=== PATIENT | female | born 1965 | race Caucasian/White ===

== ENCOUNTER 2018-11-03 10:24 | Day surgery (SDC) | payer BC ==
[~2018-11-03] VITALS: Ht 149.9 cm; Wt 112.9 kg
[~2018-11-03 10:24] MED LIST: CHOL10002 PO; CYCL10 PO; DULO30 PO; ESTR2 PO; HYDACE10B PO; IBUP600 PO; IBUP800 PO; METO10 PO; NEXIUM PO; Neurontin600 MG PO; Norco 10-325 T1 EACH PO; OXYACE5T PO; RXOXYACE PO; Zanaflex2 M1 PO
--- NOTE | 2018-11-03 11:15 | NUR ---
PT ADMITTED TO [facility]. AGREES WITH PLANNED PROCEDURE. TOLERATED BOWEL PREP STATES LAST BM CLEAR.
--- NOTE | 2018-11-03 12:09 | NUR ---
11/03/18 1209 Jack Rios History, Chart, Medications and Allergies reviewed before start of procedure.MONITOR INTACT WITH CONTINUOUS PULSE OXIMETRY AND INTERMITTENT BP.3-LEAD EKG REVIEWED WITH PHYSICIAN PRIOR TO START OF PROCEDURE.O2 VIA N/C INTACT THROUGHOUT SEDATION/PROCEDURE. Patient confirms NPO status and agrees with scheduled surgery.See Anesthesia record.
--- NOTE | 2018-11-03 14:01 | NUR ---
SPOKE WITH DR ESTRELLA IN REGARDS TO PATIENTS STATUS. PT CONTINUES TO HAVE INCREASE WORK OF BREATHING AND SOB. 02 3L/NC WITH SATS 88-91%. LUNG SOUNDS DEMINISHED T/O. NEW ORDERS PER DR ESTRELLA TO GET CHEST XRAY AND GET PT UP TO AMBULATE IF TOERATED. INCENTIVE SPIROMETER GIVEN, NOT ABLE TO INHALE DEEPLY.
--- NOTE | 2018-11-03 14:06 | NUR ---
LEFT FOR CHEST XRAY VIA GURNEY.
--- NOTE | 2018-11-03 14:29 | NUR ---
RETURNED FROM XRAY. C/O SCIATIC NERVE PAIN. GOT UP TO CHAIR WITH SBA, TOLERATED WELL. CONTINUES TO HAVE TROUBLE BREATHING. AWAIT FOR XRAY RESULT.
--- NOTE | 2018-11-03 14:31 | NUR ---
RADIOLOGIST, DR RIVERA CALLED AND CONFIRMED XRAY THAT LEFT LUNG WITH CHANGES, SHOWING POSSIBLE ASPIRATION. WILL F/U WITH DR ESTRELLA REGARDING RESULTS. PT C/O OF CHEST PAIN WITH PRESSURE AND SHARP TO EXHALE FEELING ALONG WITH SORE THROAT FROM COUGHING.
--- NOTE | 2018-11-03 14:51 | NUR ---
NEW ORDERS PER DR ESTRELLA TO TX WITH DECADRON IVP AND CONTINUE TO TITRATE [address] SLAUGHTER REGARDING PT'S STATUS.
--- NOTE | 2018-11-03 14:59 | NUR ---
DECADRON 10MG IVP GIVEN PER ORDERS. PT ON ROOM AIR WITH SATS 95%. WORK OF BREATHING IS BETTER. DENIES SOB WITH SHALLOW BREATHING BUT INCREASES WITH DEEP BREATHING ALONG WITH CHEST PAIN. CONTINUE TO MONITOR.
--- NOTE | 2018-11-03 15:22 | NUR ---
RECEIVED REPORT FROM IRIS. DR ESTRELLA IN TO TALK WITH PATIENT. ATTEMPTED TO WALK PATIENT WITH WALKER. SHE HAD DIFFICULTY TAKING DEEP BREATHS DUE TO STUFFY NOSE PER PT. DR ESTRELLA GAVE AND ORDER FOR AFRIN SPRAY. GIVEN. 02 SATS AT 93% ON REASSESSMENT AND PT IS LESS SOB. DAUGHTER TEARFUL AND ANXIOUS SITTING AT PT BEDSIDE.
--- NOTE | 2018-11-03 15:52 | NUR ---
UP TO AMBULATE VIA WALKER ON ROOM AIR; TOLERATED WELL; SATS 89-92%. PT STATES "IM BREATHING A LOT BETTER". INCENTIVE SPIROMETER GIVEN AND IS ABLE TO TAKE DEEPER BREATHS. CONTINUE TO MONITOR.
--- NOTE | 2018-11-03 16:10 | NUR ---
AMBULATED AGAIN VIA WALKER; TOLERATED WELL ON ROOM AIR. SATS 91-93%. STATES "FEELS BETTER". COUGHING UP THINK PHLEGM. ENCOURAGE TO USE INCENTIVE SPIROMETER AND AMBULATE WHEN AT HOME. AWAIT FOR DR SLAUGHTER FOR FINAL DISCHARGE ORDERS.
--- NOTE | 2018-11-03 16:44 | NUR ---
DR SLAUGHTER HERE. NEW RX'S WRITTEN. SATS 93% ON ROOM AIR. ENCOURAGE TO USE CPAP AT HOME, USE INCENTIVE SPIROMETER AND AMBULATE. Discharge instructions reviewed with patient. Patient verbalizes understanding. Copy given to patient to take home. Patient States Post-Procedure ride home has been arranged. Discharged via wheelchair to private car for ride home.
== END 2018-11-03 16:56 | disposition home or self-care (01) ==
LOC: ORSCMMR 10:24 → ORD 12:00 → ORSCMMR 12:00
PROVIDERS: Surgery
PROC: 0DJD8ZZ Inspection of Lower Intestinal Tract, Via Natural or Artificial Opening Endoscopic (ICD-10-PCS; principal; 2018-11-03 12:00)
DX: Z12.11 Encounter for screening for malignant neoplasm of colon (principal); Z86.010 Personal history of colon polyps; K57.30 Diverticulosis of large intestine without perforation or abscess without bleeding; F17.210 Nicotine dependence, cigarettes, uncomplicated; E78.5 Hyperlipidemia, unspecified; G47.33 Obstructive sleep apnea (adult) (pediatric); E66.01 Morbid (severe) obesity due to excess calories; Z68.43 Body mass index [BMI] 50.0-59.9, adult
CPT/HCPCS: 71045; J1100; J2405; J2704; J7120

== ENCOUNTER 2019-01-22 22:56 | Emergency (ER) | payer OTHER, BC ==
[~2019-01-22] VITALS: Ht 149.9 cm; Wt 104.3 kg
[2019-01-23] MEDS ORDERED: CEPH500 PO (01:44)
[2019-01-23] MEDS ORDERED: IBUP600 PO (01:44)
== END 2019-01-23 02:16 | disposition home or self-care (01) ==
LOC: ER 22:56
DX: S51.842A Puncture wound with foreign body of left forearm, initial encounter (principal); K21.9 Gastro-esophageal reflux disease without esophagitis; Z88.0 Allergy status to penicillin; Z87.891 Personal history of nicotine dependence; W45.8XXA Other foreign body or object entering through skin, initial encounter; Y92.69 Other specified industrial and construction area as the place of occurrence of the external cause
CPT/HCPCS: 10120; 73090; 90471; 90714; 96365-59; 99283-25; A9270; J0690

== ENCOUNTER 2020-07-06 09:30 | Emergency (ER) | payer BC ==
[~2020-07-06] VITALS: Ht 149.9 cm; Wt 117.9 kg
[~2020-07-06 09:30] MED LIST changes: +CEPH500 PO
[2020-07-06 10:41] LABS: BASOPHILS ABSOLUTE AUTO 0.03 K/mm3 (0.00-0.23); BASOPHILS PERCENT AUTO 0 % (0-2); EOSINOPHILS ABSOLUTE AUTO 0.07 K/mm3 (0.00-0.68); EOSINOPHILS PERCENT AUTO 1 % (0-6); Hematocrit 43.8 % (33.0-51.0); IMMATURE GRAN ABSOLUTE AUTO 0.03 K/mm3 (0.00-0.10); IMMATURE GRAN PERCENT AUTO 0 % (0-1); LYMPHOCYTES ABSOLUTE AUTO 2.34 K/mm3 (0.84-5.20); LYMPHOCYTES PERCENT AUTO 27 % (21-46); MONOCYTES ABSOLUTE AUTO 0.58 K/mm3 (0.16-1.47); MONOCYTES PERCENT AUTO 7 % (4-13); Mean Corpuscular HGB 29.4 pg (26.0-34.0); Mean Corpuscular Volume 92 fL (80-100); Mean Platelet Volume 10.7 fL (9.1-12.4); NEUTROPHILS ABSOLUTE AUTO 5.52 K/mm3 (1.96-9.15); NEUTROPHILS PERCENT AUTO 64 % (41-73); Platelet Count 258 K/mm3 (150-400); RDW Coefficient Variation 14.4 % (11.7-14.2); RDW Standard Deviation 48.8 fL (35.1-46.3); Red Blood Cell Count 4.76 M/mm3 (3.80-5.20); White Blood Cell Count 8.57 K/mm3 (4.00-11.30)
[2020-07-06 11:01] LABS: Source, Urine Clean Catch
[2020-07-06 11:02] LABS: Alanine Aminotransfer (ALT/SGP 28 U/L (12-78); Albumin, Blood 3.7 g/dL (3.4-5.0); Albumin/Globulin Ratio 0.9 (0.8-1.8); Alk Phos 95 U/L (50-136); Anion Gap 4 mmol/L (6-16); Aspartate Aminotrans (AST/SGOT 16 U/L (12-37); Bilirubin, Total 0.4 mg/dL (0.1-1.0); Blood Urea Nitrogen 17 mg/dL (8-24); CO2, Blood 29 mmol/L (21-32); Calcium, Blood 9.1 mg/dL (8.5-10.1); Chloride, Blood 107 mmol/L (98-108); Creatinine, Blood 0.71 mg/dL (0.40-1.00); Globulin, Blood 3.9 g/dL (2.2-4.0); Glomerular Filtration Rate >60 (60-); Glucose, Blood 109 mg/dL (70-99); Potassium, Blood 4.1 mmol/L (3.5-5.5); Sodium, Blood 140 mmol/L (136-145); Total Protein, Blood 7.6 g/dL (6.4-8.2)
[2020-07-06] MEDS ORDERED: BACL10 PO (11:14)
[2020-07-06] MEDS ORDERED: BUSPIRONE HCL10 M1 PO (11:14)
[2020-07-06] MEDS ORDERED: MELO7.5 PO (11:15)
[2020-07-06] MEDS ORDERED: PREGABALIN150 M1 PO (11:15)
[2020-07-06] MEDS ORDERED: VITAMIN D5000 UNIT PO (11:16)
[2020-07-06] MEDS ORDERED: DICLOFENAC SOD100 GM TOP (11:17)
[2020-07-06 11:32] LABS: Appearance, Urine Clear (Clear); Bilirubin, Urine Neg (Neg); Blood, Urine 3+ (Neg); Color, Urine Yellow (P-Yellow); Glucose Qualitative, Urine Neg (Neg); Ketones, Urine Neg (Neg); Leukocyte Esterase, Urine Neg (Neg); Nitrite, Urine Neg (Neg); Protein, Urine Neg (Neg); Specific Gravity, Urine 1.015 (1.003-1.022); Urobilinogen, Urine NORM (Normal)
[2020-07-06] MEDS ORDERED: KETOROLAC TROME10 MG PO (11:40)
[2020-07-06 11:57] LABS: Bacteria Many /hpf; Squamous Epithelial Cells Mod /hpf (Few); White Blood Cells, Urine 0-2 /hpf (0-5)
== END 2020-07-06 12:15 | disposition home or self-care (01) ==
LOC: ER 09:30
PROVIDERS: Emergency Medicine
DX: N13.2 Hydronephrosis with renal and ureteral calculous obstruction (principal); Z79.899 Other long term (current) drug therapy
CPT/HCPCS: 36415; 74176; 80053; 81001; 83690; 85025; 87086; 96374; 99284-25; J1885; J7030